=== PATIENT | female | born 1970 | race African-American/Black ===

== ENCOUNTER 2019-01-23 08:13 | Emergency (ER) | payer MEDICARE, MEDICAID ==
[~2019-01-23] VITALS: Ht 160 cm; Wt 151.8 kg
[2019-01-23] MEDS ORDERED: PRINZIDE 12.5 M1 TA1 PO (08:31)
[2019-01-23] MEDS ORDERED: NORCO 325 MG-51 TAB PO (08:58)
[2019-01-23] MEDS ORDERED: CLEOCIN HCL300 MG PO (08:58)
[2019-01-23] MEDS ORDERED: ZESTORETIC 12.51 TA1 PO (08:58)
[2019-01-23 09:29] VITALS: BP 149/73; PULSE 79; TEMP 98.1
== END 2019-01-23 09:31 | disposition home or self-care (01) ==
LOC: COL.ER 08:13
DX: K02.9 Dental caries, unspecified (principal); I10 Essential (primary) hypertension; F17.210 Nicotine dependence, cigarettes, uncomplicated; Z88.0 Allergy status to penicillin; Z88.5 Allergy status to narcotic agent; Z98.890 Other specified postprocedural states

== ENCOUNTER 2019-04-25 08:36 | Emergency (ER) | payer MEDICARE ==
[~2019-04-25] VITALS: Ht 160 cm; Wt 154.1 kg
[~2019-04-25 08:36] MED LIST: CLEOCIN HCL300 MG PO; NORCO 325 MG-51 TAB PO; PRINZIDE 12.5 M1 TA1 PO; ZESTORETIC 12.51 TA1 PO
[2019-04-25 08:40] VITALS: TEMP 97.3
[2019-04-25 09:24] LABS: BASO % 0.4 % (0.0-2.0); EOS # 0.3 (0.0-0.7); EOS % 3.5 % (0-4.0); GRAN # 5.2 (1.4-6.5); GRAN % 52.8 % (42.2-75.2); HEMATOCRIT 42.5 % (37.0-47.0); HEMOGLOBIN 13.6 g/dl (12.5-16.0); LYMPH # 3.7 (1.2-3.4); MEAN CELL VOLUME 91 fl (80.0-100.0); MEAN CORPUSCULAR HEMOGLOBIN 29 pg (27.0-31.0); MEAN CORPUSCULAR HGB CONC 32 g/dl (33.0-37.0); MEAN PLATELET VOLUME 10.2 fl (7.4-10.4); MONO # 0.5 (0.1-0.6); MONO % 5.1 % (1.7-9.3); PLATELET COUNT 295 K/mm3 (130-400); RED BLOOD COUNT 4.68 M/mm3 (4.10-5.30); REDCELL DISTRIBUTION WIDTH-CV 13.7 % (11.5-14.5)
[2019-04-25 09:39] LABS: ALBUMIN 4.4 gm/dL (3.5-5.0); BILIRUBIN,TOTAL 0.4 mg/dL (0.0-1.0); C-REACTIVE PROTEIN 1.6 mg/dL (0.0-0.9); CREATININE, serum 1.02 (0.52-1.25); POTASSIUM 4.5 mmol/L (3.4-5.0); TOTAL PROTEIN 8.4 gm/dL (6.4-8.2)
[2019-04-25] MEDS ORDERED: CLEOCIN HCL300 MG PO (10:34)
[2019-04-25] MEDS ORDERED: NORCO 325 MG-51 TAB PO (10:34)
[2019-04-25 11:02] VITALS: BP 168/81; PULSE 78
== END 2019-04-25 11:01 | disposition home or self-care (01) ==
LOC: COL.ER 08:36
PROVIDERS: Nurse Practitioner
DX: K02.9 Dental caries, unspecified (principal); E11.9 Type 2 diabetes mellitus without complications; I10 Essential (primary) hypertension; F17.210 Nicotine dependence, cigarettes, uncomplicated; Z86.73 Personal history of transient ischemic attack (TIA), and cerebral infarction without residual deficits; Z88.0 Allergy status to penicillin; Z88.5 Allergy status to narcotic agent

== ENCOUNTER → 2019-05-01 | Outpatient (CLI) | payer MEDICARE, MEDICAID | LOC: MC.RAD 08:22 | DX: N64.3 Galactorrhea not associated with childbirth (principal) | CPT/HCPCS: G0279 ==

== ENCOUNTER → 2019-08-17 | Outpatient (CLI) | payer MEDICARE, MEDICAID | LOC: COL.RAD 08:09 | DX: D35.2 Benign neoplasm of pituitary gland (principal) | CPT/HCPCS: A9585 ==

== ENCOUNTER → 2019-09-09 | Outpatient (CLI) | payer MEDICARE, MEDICAID | LOC: MHCPAIN 09:23 | DX: M47.817 Spondylosis without myelopathy or radiculopathy, lumbosacral region (principal); M54.5 Low back pain; M53.3 Sacrococcygeal disorders, not elsewhere classified; M54.16 Radiculopathy, lumbar region; M25.561 Pain in right knee; M25.562 Pain in left knee; E66.01 Morbid (severe) obesity due to excess calories | CPT/HCPCS: G0463 ==

== ENCOUNTER 2019-10-01 08:30 | Outpatient (RCR) | payer MEDICARE, MEDICAID ==
[2019-10-28] MEDS ORDERED: CLEOCIN HCL300 MG PO (19:24)
[2019-10-28] MEDS ORDERED: NORCO 325 MG-51 TAB PO (19:24)
== END 2019-12-13 | disposition home or self-care (01) ==
LOC: WSC
DX: M47.817 Spondylosis without myelopathy or radiculopathy, lumbosacral region (principal); M54.16 Radiculopathy, lumbar region; M53.3 Sacrococcygeal disorders, not elsewhere classified; M25.561 Pain in right knee; M25.562 Pain in left knee

== ENCOUNTER 2020-01-10 11:06 | Emergency (ER) | payer MEDICARE, MEDICAID ==
[~2020-01-10] VITALS: Ht 162.6 cm; Wt 160.9 kg
[2020-01-10 11:17] VITALS: TEMP 98.2
[2020-01-10] MEDS ORDERED: PROZAC 20MG20 MG PO (12:27)
[2020-01-10] MEDS ORDERED: NEURONTIN300 MG/CAP PO (12:27)
[2020-01-10] MEDS ORDERED: NORCO 325 MG-51 TAB PO (12:55)
[2020-01-10 13:25] VITALS: BP 152/90; PULSE 72
== END 2020-01-10 13:25 | disposition home or self-care (01) ==
LOC: COL.ER 11:06
DX: S83.92XA Sprain of unspecified site of left knee, initial encounter (principal); I10 Essential (primary) hypertension; F17.210 Nicotine dependence, cigarettes, uncomplicated; I25.2 Old myocardial infarction; Z88.0 Allergy status to penicillin; Z88.6 Allergy status to analgesic agent; Z86.39 Personal history of other endocrine, nutritional and metabolic disease; Z90.49 Acquired absence of other specified parts of digestive tract; Z86.73 Personal history of transient ischemic attack (TIA), and cerebral infarction without residual deficits; X50.0XXA Overexertion from strenuous movement or load, initial encounter

== ENCOUNTER 2020-02-05 12:30 | Emergency (ER) | payer MEDICARE, MEDICAID ==
[~2020-02-05] VITALS: Ht 160 cm; Wt 154.5 kg
[~2020-02-05 12:30] MED LIST changes: +NEURONTIN300 MG/CAP PO; +PROZAC 20MG20 MG PO
[2020-02-05 13:05] VITALS: TEMP 98.4
[2020-02-05 16:22] LABS: ALBUMIN 4.3 gm/dL (3.5-5.0); BILIRUBIN,TOTAL 0.5 mg/dL (0.0-1.0); C-REACTIVE PROTEIN 2.1 mg/dL (0.0-0.9); CALCIUM 9.2 mg/dL (8.4-10.2); CREATININE, serum 0.85 (0.52-1.25); POTASSIUM 4.4 mmol/L (3.4-5.0)
[2020-02-05 16:56] LABS: HEMATOCRIT 40.9 % (37.0-47.0); HEMOGLOBIN 12.9 g/dl (12.5-16.0); MEAN CELL VOLUME 91 fl (80.0-100.0); MEAN CORPUSCULAR HEMOGLOBIN 29 pg (27.0-31.0); MEAN CORPUSCULAR HGB CONC 32 g/dl (33.0-37.0); MEAN PLATELET VOLUME 9.8 fl (7.4-10.4); PLATELET COUNT 297 K/mm3 (130-400); RED BLOOD COUNT 4.48 M/mm3 (4.10-5.30); REDCELL DISTRIBUTION WIDTH-CV 13.5 % (11.5-14.5)
[2020-02-05] MEDS ORDERED: DOXYCYCLINE 10100 MG PO (17:22)
[2020-02-05] MEDS ORDERED: PERCOCET 325 MG1 TA2 PO (17:30)
[2020-02-05 17:32] LABS: ERYTHROCYTE SEDIMENTATION RATE 29 mm/hr (0-20)
[2020-02-05 17:46] LABS: EOSINOPHIL 3 % (0-4); LYMPHOCYTE 35 % (20.0-51.0); NEUTROPHILS 60 % (42.0-75.2); PLATELET ESTIMATE NORMAL (NORMAL)
[2020-02-05 18:29] VITALS: BP 133/74; PULSE 87
== END 2020-02-05 18:30 | disposition home or self-care (01) ==
LOC: COL.ER 12:30
PROVIDERS: Emergency Medicine; Physician Assistant
DX: L03.116 Cellulitis of left lower limb (principal); I10 Essential (primary) hypertension; E66.01 Morbid (severe) obesity due to excess calories; F32.9 Major depressive disorder, single episode, unspecified; F17.210 Nicotine dependence, cigarettes, uncomplicated; Z86.73 Personal history of transient ischemic attack (TIA), and cerebral infarction without residual deficits; Z86.011 Personal history of benign neoplasm of the brain; Z88.0 Allergy status to penicillin; Z88.5 Allergy status to narcotic agent
CPT/HCPCS: J0696; J3010

== ENCOUNTER 2020-11-01 13:41 | Emergency (ER) | payer MEDICARE, MEDICAID ==
[~2020-11-01] VITALS: Ht 162.6 cm; Wt 172.3 kg
[~2020-11-01 13:41] MED LIST changes: +DOXYCYCLINE 10100 MG PO; +PERCOCET 325 MG1 TA2 PO
[2020-11-01 13:56] VITALS: TEMP 98.9
[2020-11-01] MEDS ORDERED: NEURONTIN100 MG/CAP PO (14:54)
[2020-11-01 15:09] VITALS: BP 134/89; PULSE 97
== END 2020-11-01 15:09 | disposition home or self-care (01) ==
LOC: COL.ER 13:41
DX: M54.32 Sciatica, left side (principal); I10 Essential (primary) hypertension; E66.9 Obesity, unspecified; E78.5 Hyperlipidemia, unspecified; E11.9 Type 2 diabetes mellitus without complications; F17.210 Nicotine dependence, cigarettes, uncomplicated; Z79.899 Other long term (current) drug therapy

== ENCOUNTER 2021-05-11 09:41 | Emergency (ER) | payer MEDICARE, MEDICAID ==
[~2021-05-11] VITALS: Ht 162.6 cm; Wt 155.5 kg
[~2021-05-11 09:41] MED LIST changes: +NEURONTIN100 MG/CAP PO
[2021-05-11] MEDS ORDERED: DULCOLAX STOOL100 MG PO (11:57)
[2021-05-11 12:11] VITALS: BP 132/91; PULSE 91; TEMP 98.2
== END 2021-05-11 12:21 | disposition home or self-care (01) ==
LOC: COL.ER 09:41
DX: K59.00 Constipation, unspecified (principal); F17.210 Nicotine dependence, cigarettes, uncomplicated; Z90.49 Acquired absence of other specified parts of digestive tract
CPT/HCPCS: J7030

== ENCOUNTER 2021-10-02 22:04 | Emergency (ER) | payer MEDICARE, MEDICAID ==
[~2021-10-02] VITALS: Ht 162.6 cm; Wt 165.5 kg
[~2021-10-02 22:04] MED LIST changes: +DULCOLAX STOOL100 MG PO
[2021-10-02 22:20] VITALS: BP 126/59; PULSE 82; TEMP 97.7
== END 2021-10-02 22:50 | disposition left against medical advice (07) ==
LOC: COL.ER 22:04
DX: M79.604 Pain in right leg (principal); M54.50 Low back pain, unspecified

== ENCOUNTER 2021-10-06 22:57 | Emergency (ER) | payer MEDICARE, MEDICAID ==
[~2021-10-06] VITALS: Ht 162.6 cm; Wt 166.8 kg
[2021-10-06 23:01] VITALS: TEMP 97.9
[2021-10-07] MEDS ORDERED: FLEXERIL 1010 MG/TAB PO (00:50)
[2021-10-07 01:14] VITALS: BP 141/88; PULSE 75
== END 2021-10-07 01:15 | disposition home or self-care (01) ==
LOC: COL.ER 22:57
DX: S16.1XXA Strain of muscle, fascia and tendon at neck level, initial encounter (principal); R51.9 Headache, unspecified; F17.200 Nicotine dependence, unspecified, uncomplicated; E66.9 Obesity, unspecified; Z68.44 Body mass index [BMI] 60.0-69.9, adult; Z28.310 Unvaccinated for COVID-19; W22.8XXA Striking against or struck by other objects, initial encounter
CPT/HCPCS: J1885; J2360

== ENCOUNTER 2022-07-09 08:15 | Outpatient (RCR) | payer MEDICARE, MEDICAID ==
[~2022-07-09 08:15] MED LIST changes: +FLEXERIL 1010 MG/TAB PO
== END 2022-07-15 | disposition still patient (30) ==
LOC: WSPT
DX: M48.061 Spinal stenosis, lumbar region without neurogenic claudication (principal)

== ENCOUNTER 2023-05-10 13:16 | Emergency (ER) | payer MEDICARE, MEDICAID ==
[~2023-05-10] VITALS: Ht 162.6 cm; Wt 157.7 kg
[2023-05-10] MEDS ORDERED: LR 1,000 ML IV ONE (15:00)
[2023-05-10] MEDS ORDERED: Ondansetron 4 MG/2 ML VIAL IV ONE (15:00)
[2023-05-10] MEDS ORDERED: Morphine 4 MG/ML VIAL IV ONE (15:00)
[2023-05-10 16:44] LABS: ALBUMIN 3.6 gm/dL (3.5-5.0); BILIRUBIN,TOTAL 0.4 mg/dL (0.2-1.2); CALCIUM 9.2 mg/dL (8.4-10.2); CREATININE, serum 0.95 mg/dL (0.57-1.11); TOTAL PROTEIN 7.2 gm/dL (6.2-8.1)
[2023-05-10 17:09] LABS: BASO % 0.2 % (0.0-2.0); EOS # 0.2 K/mm3 (0.0-0.7); EOS % 1.3 % (0.0-4.0); GRAN # 7.8 K/mm3 (1.4-6.5); GRAN % 60.5 % (42.2-75.2); HEMATOCRIT 41.3 % (37.0-47.0); HEMOGLOBIN 13.3 g/dl (12.5-16.0); LYMPH # 4.4 K/mm3 (1.2-3.4); LYMPH % 34.2 % (20.0-51.0); MEAN CELL VOLUME 98 fl (80.0-100.0); MEAN CORPUSCULAR HEMOGLOBIN 32 pg (27-31); MEAN CORPUSCULAR HGB CONC 32 g/dl (33.0-37.0); MEAN PLATELET VOLUME 9.7 fl (7.4-10.4); MONO # 0.5 K/mm3 (0.1-0.6); MONO % 3.6 % (1.7-9.3); PLATELET COUNT 286 K/mm3 (130-400); RED BLOOD COUNT 4.22 M/mm3 (4.10-5.30); REDCELL DISTRIBUTION WIDTH-CV 12.6 % (11.5-14.5)
[2023-05-10] MEDS ORDERED: Iohexol 300 - 100 ML VIAL IV ONE (17:26)
[2023-05-10] MEDS ORDERED: NS 100 ML IV SCH (17:26)
[2023-05-10 18:57] VITALS: BP 125/75; PULSE 94; TEMP 97.7
== END 2023-05-10 18:53 | disposition home or self-care (01) ==
LOC: COL.ER 13:16
PROVIDERS: Emergency Medicine
DX: R10.84 Generalized abdominal pain (principal); R16.0 Hepatomegaly, not elsewhere classified; D72.829 Elevated white blood cell count, unspecified; K59.00 Constipation, unspecified; Z90.49 Acquired absence of other specified parts of digestive tract
CPT/HCPCS: J2270; J2405; J7120; Q9967